=== PATIENT | female | born 1985 | race Caucasian/White ===

== ENCOUNTER 2016-12-26 12:10 | Emergency (ER) | payer BC ==
[~2016-12-26] VITALS: Ht 170.2 cm; Wt 106.5 kg
[~2016-12-26 12:10] MED LIST: ACID REDUCER 1150 MG PO; ENDOCET 5-3251 EACH PO; IBUPROFEN800 MG PO; TYLENOL EXTRA500 MG PO; VITAFOL-OB+DHA1 EACH PO; ZANTAC150 MG PO
[2016-12-26 15:22] LABS: HEMATOCRIT 42.6 % (36.0-46.0); MCH 29.7 PG (29.0-34.0); MCHC 33.6 G/DL (30.0-36.0); MCV 88.6 FL (83-99); MEAN PLAT.VOLUME 12.3 uM^3 (9.5-12.4); PLATELET COUNT 185 K/uL (156-360); RBC DIS.WIDTH-CV 11.9 % (11.8-14.6); RBC DIS.WIDTH-SD 38.1 % (39-53); RED BLOOD COUNT 4.81 M/uL (3.80-5.20)
[2016-12-26 15:30] LABS: CHLORIDE 107 mEq/L (99-109); POTASSIUM 4.4 mEq/L (3.7-5.4); SODIUM 139 mEq/L (136-147)
[2016-12-26 15:33] LABS: GLUCOSE 77 mg/dL (70-99)
[2016-12-26 15:34] LABS: ANION GAP 14 MEQ/L (2-14); TOTAL BILIRUBIN 0.9 mg/dL (0.0-1.0)
[2016-12-26 15:36] LABS: ALKALINE PHOSPHATASE 72 IU/L (3-129); GFR ESTIMATE (CALCULATED) > 59 mL/min/
[2016-12-26 15:37] LABS: UREA NITROGEN (BUN) 10 mg/dL (9-23)
[2016-12-26 15:38] LABS: DIRECT BILIRUBIN 0.3 mg/dL (0.0-0.3)
[2016-12-26 15:52] LABS: LIPASE 7 U/L (1.0-51.0)
[2016-12-26 16:06] LABS: INFLUENZA A VIRAL ANTIGEN NEGATIVE; INFLUENZA B VIRAL ANTIGEN NEGATIVE
[2016-12-26 18:04] LABS: D-DIMER ELISA 0.81 mg/L FEU (< 0.57)
[2016-12-26 18:10] LABS: QUANTITATIVE HCG < 4.0 MIU/ML
[2016-12-26 18:27] LABS: ADD MIUA? YES; BILIRUBIN NEGATIVE; BLOOD NEGATIVE; COLOR YELLOW ((YELLOW)); GLUCOSE (STRIP) NEGATIVE; KETONES 80; LEUKOCYTES NEGATIVE; NITRITE NEGATIVE; PROTEIN (STRIP) 30; SPECIFIC GRAVITY 1.021 (1.000-1.030); UROBILINOGEN 0.2 MG/DL (0.2-1.0)
[2016-12-26 18:34] LABS: BACTERIA RARE /HPF; CALCIUM OXALATE CRYSTALS 1+ /HPF; EPITHELIAL CELLS 2+ /HPF; MUCUS TRACE /LPF; RED BLOOD CELLS 0-5 /HPF (0-5); UCUL ADDED? NO; WHITE BLOOD CELLS 0-5 /HPF (0-5)
[2016-12-26] MEDS ORDERED: NAPROSYN500 MG PO (21:19)
[2016-12-26 21:41] VITALS: BP 129/80
[2016-12-27 10:18] LABS: LYME DISEASE SEROLOGY SCREEN NEGATIVE (NEGATIVE)
== END 2016-12-26 21:41 | disposition home or self-care (01) ==
LOC: EME 12:10
PROVIDERS: Physician Assistant Medical
DX: J02.9 Acute pharyngitis, unspecified (principal); R00.0 Tachycardia, unspecified; E86.0 Dehydration; B34.9 Viral infection, unspecified; M79.604 Pain in right leg; M79.605 Pain in left leg; Z90.49 Acquired absence of other specified parts of digestive tract
CPT/HCPCS: 71020; 71275; 80048; 80076; 81003; 83690; 84702; 85027; 85379; 86618; 87502; 87651 90; 93005; 99281; 99284; J1885; J7030

== ENCOUNTER 2017-05-28 12:07 | Emergency (ER) | payer BC ==
[~2017-05-28] VITALS: Ht 170.2 cm; Wt 105.9 kg
[~2017-05-28 12:07] MED LIST changes: +NAPROSYN500 MG PO
[2017-05-28 12:35] LABS: HEMATOCRIT 38.5 % (36.0-46.0); MCH 30.1 PG (29.0-34.0); MCHC 34.3 G/DL (30.0-36.0); MCV 87.7 FL (83-99); MEAN PLAT.VOLUME 12.4 uM^3 (9.5-12.4); PLATELET COUNT 237 K/uL (156-360); RBC DIS.WIDTH-CV 11.9 % (11.8-14.6); RBC DIS.WIDTH-SD 38.5 % (39-53); RED BLOOD COUNT 4.39 M/uL (3.80-5.20); WHITE BLOOD COUNT 10.9 K/uL (4.1-10.2)
[2017-05-28 12:45] LABS: CHLORIDE 106 mEq/L (99-109); POTASSIUM 3.7 mEq/L (3.7-5.4); SODIUM 139 mEq/L (136-147)
[2017-05-28 12:46] LABS: GLUCOSE 97 mg/dL (70-99)
[2017-05-28 12:48] LABS: ANION GAP 13 MEQ/L (2-14)
[2017-05-28 12:50] LABS: GFR ESTIMATE (CALCULATED) > 59 mL/min/; TROP-I INTERPRETATION NEGATIVE; TROPONIN-I < 0.01 ng/mL (0.0-0.30)
[2017-05-28 12:51] LABS: UREA NITROGEN (BUN) 12 mg/dL (9-23)
[2017-05-28] MEDS ORDERED: INDOCIN50 MG PO (16:38)
[2017-05-28 17:40] VITALS: BP 116/78
== END 2017-05-28 17:40 | disposition home or self-care (01) ==
LOC: EME 12:07
DX: R07.89 Other chest pain (principal); R22.1 Localized swelling, mass and lump, neck; Z79.3 Long term (current) use of hormonal contraceptives
CPT/HCPCS: 71020; 71275; 80048; 84484; 85027; 85379; 93005; 99281; 99285; J1100